=== PATIENT | male | born 1935 | race Caucasian/White ===

== ENCOUNTER 2018-10-03 16:22 | Emergency (ER) | payer MEDICARE, OTHER ==
[~2018-10-03] VITALS: Ht 180.3 cm; Wt 69.9 kg
[2018-10-03 16:27] VITALS: Ht 180.3 cm; Wt 69.9 kg
[2018-10-03] MEDS ORDERED: LANOXIN125 MCG PO (16:37)
[2018-10-03] MEDS ORDERED: BAYER CHEWABLE81 MG PO (16:37)
[2018-10-03] MEDS ORDERED: CO Q-1030 MG PO (16:38)
[2018-10-03] MEDS ORDERED: LISINOPRIL10 MG PO (16:38)
[2018-10-03] MEDS ORDERED: SYNTHROID50 MCG PO (16:38)
[2018-10-03] MEDS ORDERED: NORVASC5 MG PO (16:38)
[2018-10-03 16:59] LABS: BASOPHILS 0.3 % (0-2); HEMATOCRIT 35.1 % (42.0-54.0); HEMOGLOBIN 12.6 g/dL (13.5-17.5); IMMATURE GRANULOCYTES 0.3 % (0-5); LYMPHOCYTES 34.8 % (15-50); MCH 32.2 pg (26.0-34.0); MCHC 35.9 g/dL (31.0-37.0); MCV 89.8 fL (80.0-100.0); MEAN PLATELET VOLUME 9.5 fL (7.4-10.4); NEUTROPHILS 41.6 % (40-80); PLATELET COUNT 300 10x3/uL (130-400); RBC 3.91 10x6/uL (4.20-6.10); RDW 14.3 % (11.5-14.5); WBC 7.9 10x3/uL (4.8-10.8)
[2018-10-03 17:08] LABS: APTT 33.6 SECONDS (22.8-39.4); INR 0.98 (0.85-1.17); PROTIME 12.5 SECONDS (11.6-15.0)
[2018-10-03 17:17] LABS: ALBUMIN 3.6 g/dL (3.4-5.0); ANION GAP 12.7 mmol/L (8-16); BILIRUBIN - TOTAL 0.4 mg/dL (0.2-1.3); CALCIUM 8.7 mg/dL (8.5-10.1); CARBON DIOXIDE 25.4 mmol/L (21.0-32.0); CREATININE - SERUM 1.3 mg/dL (0.6-1.3); MAGNESIUM - SERUM 1.7 mg/dL (1.8-2.4); POTASSIUM - SERUM 4.1 mmol/L (3.5-5.1); PROTEIN - SERUM 8.2 g/dL (6.4-8.2)
[2018-10-03 18:22] LABS: APPEARANCE CLEAR (CLEAR); BILIRUBIN NEGATIVE (NEGATIVE); COLOR YELLOW (YELLOW); GLUCOSE NEGATIVE (NEGATIVE); KETONE NEGATIVE (NEGATIVE); NITRITE NEGATIVE (NEGATIVE); PROTEIN NEGATIVE (NEGATIVE); SPECIFIC GRAVITY 1.015 (1.005-1.020); UROBILINOGEN NORMAL (NORMAL)
[2018-10-03 19:10] VITALS: BP 138/95
== END 2018-10-03 19:10 | disposition home or self-care (01) ==
LOC: D.ER 16:22
PROVIDERS: Family Medicine
DX: G45.9 Transient cerebral ischemic attack, unspecified (principal); Z95.0 Presence of cardiac pacemaker; I10 Essential (primary) hypertension; I48.92 Unspecified atrial flutter; R42 Dizziness and giddiness